=== PATIENT | male | born 1965 | race Caucasian/White ===

== ENCOUNTER 2019-10-23 00:18 | Inpatient (IN) | payer MEDICARE ==
[~2019-10-23] VITALS: Ht 177.8 cm; Wt 90.0 kg
[2019-10-23] MEDS ORDERED: LORazepam 2 MG/ML, 1ML IVPush ONE ×2 (00:30→02:00)
[2019-10-23] MEDS ORDERED: SODIUM CHLORIDE 0.9% 1,000ML IVBOLUS ONE (00:30)
[2019-10-23 00:57] LABS: ALANINE AMINOTRANSFERASE 65 U/L (12-78); ALBUMIN 3.3 g/dL (3.4-5.0); ANION GAP 8 mmol/L (5-15); CALCIUM 7.2 mg/dL (8.5-10.1); CHLORIDE 101 mmol/L (98-107); CREATININE 1.02 mg/dL (0.7-1.3)
[2019-10-23 00:59] LABS: ALKALINE PHOSPHATASE 85 U/L (45-117); BILIRUBIN,TOTAL 2.9 mg/dL (0.2-1.0)
[2019-10-23] MEDS ORDERED: LORazepam 2 MG/ML, 1ML ONE ×2 (01:03→01:41)
--- NOTE | 2019-10-23 01:13 | NUR ---
Patient BIB ambulance from [facility] for ETOH withdrawal. He presented to their facility with general malaise, multiple falls, decreased appetite, and not feeling well. Patient states he stopped drinking a long time ago but then admitted to his last drink being a few days ago. Patient had multiple abnormal labs. Patient is tremulous and unable to follow directions well. He is incontinent of urine. Respirations even and unlabored.
--- NOTE | 2019-10-23 01:14 | NUR ---
float rn: pt situated in bed with rn duke and this rn medicated. pt side rails up and bed locked in low position. 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
[2019-10-23] MEDS ORDERED: HYDR-3237 PO (01:19)
[2019-10-23] MEDS ORDERED: PANT40TA5 PO (01:19)
[2019-10-23] MEDS ORDERED: CHLO25CA9 PO (01:19)
[2019-10-23] MEDS ORDERED: THIA100T67 PO (01:19)
[2019-10-23] MEDS ORDERED: AMLO-150 PO (01:19)
[2019-10-23 01:22] LABS: MEAN CORPUSCULAR HEMOGLOBIN 35.3 pg (27.5-34.5); MEAN CORPUSCULAR HGB CONC 33.8 g/dL (33.2-36.2); MEAN CORPUSCULAR VOLUME 104.5 fL (81-97); RED BLOOD COUNT 3.73 x10^6/uL (4.38-5.82); RED CELL DISTRIBUTION WIDTH 14.2 % (9.4-14.8)
[2019-10-23 01:25] LABS: BASOPHILS # (AUTO) 0.02 x10^3/uL (0-0.1); BASOPHILS % (AUTO) 0 % (0-1); EOSINOPHILS # (AUTO) 0.06 x10^3/uL (0-0.4); EOSINOPHILS % (AUTO) 1 % (1-7); LYMPHOCYTES # (AUTO) 1.01 x10^3/uL (1-3.4); LYMPHOCYTES % (AUTO) 18 % (22-44); MD SCAN; MEAN PLATELET VOLUME 8.3 fL (7.4-10.4); MONOCYTES # (AUTO) 0.32 x10^3/uL (0.2-0.8); MONOCYTES % (AUTO) 6 % (2-9); NEUTROPHILS # (AUTO) 4.19 x10^3/uL (1.8-6.8); NEUTROPHILS % (AUTO) 75 % (42-75)
[2019-10-23 01:27] LABS: PLATELET COUNT 28 x10^3/uL (130-400)
[2019-10-23] MEDS ORDERED: FOLIC ACID 1 MG TABLET PO ONE (02:00)
[2019-10-23] MEDS ORDERED: THIAMINE 200 MG in DEXTROSE 5% 50 ML IVPB ONE (02:00)
[2019-10-23] MEDS ORDERED: ONDANSETRON 2MG/ML, 2ML IVPush PRN (02:00)
[2019-10-23] MEDS ORDERED: LORazepam 2 MG/ML, 1ML IV PRN ×2 (02:00)
[2019-10-23] MEDS ORDERED: D5%-0.9% NACL+KCL 20MEQ 1,000 ML IV SCH (02:00)
[2019-10-23] MEDS ORDERED: POTASSIUM CHLORIDE 20 MEQ in SODIUM CHLORIDE 0.9% 250 ML IV ONE (02:00)
--- NOTE | 2019-10-23 02:07 | NUR ---
Demi barnes in [facility] - 10/23/19 at 0229 by [email or web address] Report given to SHIREEN Giraldo. Patient to be transferred to room [facility].
--- NOTE | 2019-10-23 02:29 | NUR ---
Report given to SHIREEN Lafleur. Patient to be transferred to room 517.
[2019-10-23 03:10] VITALS: BP 138/83
[2019-10-23] MEDS: LORazepam 2 MG/ML, 1ML IV PRN ×6 (03:24→14:25)
[2019-10-23 03:50] LABS: MICROSCOPIC NOT IND
[2019-10-23 08:00] VITALS: BP 162/94
[2019-10-23] MEDS ORDERED: MULTIVITAMINS/MINERALS TABLET PO SCH (09:00)
[2019-10-23] MEDS ORDERED: MORPHINE SULFATE 4 MG/ML, 1ML IVPush PRN (09:00)
[2019-10-23] MEDS: CHLORDIAZEPOXIDE 25 MG CAPSULE PO SCH ×2 (09:39→15:09)
[2019-10-23] MEDS: POTASSIUM CHLORIDE 20 MEQ, MAGNESIUM SULFATE 1 GM, FOLIC ACID 1 MG, THIAMINE 200 MG, MV... IV SCH (09:40)
[2019-10-23 10:48] VITALS: BP 150/99
[2019-10-23] MEDS ORDERED: MAGNESIUM SULFATE PMX 2GM/50ML 50 ML IV ONE (13:00)
[2019-10-23 14:03] VITALS: BP 170/95
--- NOTE | 2019-10-23 14:19 | NUR ---
RECEIVED CALL FROM [facility] AT [place]. PATIENT HAS GRAM POSITIVE COCCI IN [facility] GROWING IN THE AEROBIC BOTTLE AT THEIR FACILITY. NOTIFIED ALEX ADAMES APRN, BY PHONE.
[2019-10-23] MEDS ORDERED: VANCOMYCIN PER PHARMACY MC PRN (15:30)
[2019-10-23] MEDS ORDERED: VANCOMYCIN 2,300 MG in SODIUM CHLORIDE 0.9% 500 ML IV ONE (16:00)
[2019-10-23] MEDS ORDERED: PHARMACOKINETIC MONITORING MC PRN (16:00)
[2019-10-23] MEDS ORDERED: PHARMACY INSTRUCTION MC PRN ×4 (16:00)
[2019-10-23] MEDS ORDERED: PHENOBARBITAL SODIUM 730 MG in SODIUM CHLORIDE 0.9% 50 ML IVPB ONE (17:00)
[2019-10-23] MEDS ORDERED: SODIUM CHLORIDE 0.9% IV ONE (18:30)
[2019-10-23] MEDS ORDERED: PHENOBARBITAL SODIUM IV ONE (18:30)
[2019-10-23] MEDS: PHENOBARBITAL SODIUM 65 MG/ML, 1ML IM SCH (23:15)
[2019-10-24] MEDS: VANCOMYCIN 1,700 MG in SODIUM CHLORIDE 0.9% 250 ML IV SCH ×2 (04:06→17:53)
[2019-10-24 04:37] LABS: MEAN CORPUSCULAR HEMOGLOBIN 35.2 pg (27.5-34.5); MEAN CORPUSCULAR HGB CONC 33.2 g/dL (33.2-36.2); RED BLOOD COUNT 4.05 x10^6/uL (4.38-5.82); RED CELL DISTRIBUTION WIDTH 13.6 % (9.4-14.8)
[2019-10-24 04:40] LABS: ALBUMIN 3.2 g/dL (3.4-5.0); ANION GAP 11 mmol/L (5-15); CALCIUM 7.1 mg/dL (8.5-10.1); CHLORIDE 102 mmol/L (98-107)
[2019-10-24 04:41] LABS: PLATELET COUNT 23 x10^3/uL (130-400)
[2019-10-24 04:43] LABS: ALANINE AMINOTRANSFERASE 52 U/L (12-78); ALKALINE PHOSPHATASE 84 U/L (45-117); BILIRUBIN,TOTAL 3.9 mg/dL (0.2-1.0); CREATININE 0.83 mg/dL (0.7-1.3); TOTAL PROTEIN 6.9 g/dL (6.4-8.2)
[2019-10-24 05:04] LABS: BASOPHILS # (AUTO) 0.09 x10^3/uL (0-0.1); BASOPHILS % (AUTO) 2 % (0-1); EOSINOPHILS # (AUTO) 0.06 x10^3/uL (0-0.4); EOSINOPHILS % (AUTO) 1 % (1-7); LYMPHOCYTES # (AUTO) 1.35 x10^3/uL (1-3.4); LYMPHOCYTES % (AUTO) 22 % (22-44); MD SCAN; MONOCYTES # (AUTO) 0.34 x10^3/uL (0.2-0.8); MONOCYTES % (AUTO) 6 % (2-9); NEUTROPHILS # (AUTO) 4.23 x10^3/uL (1.8-6.8); NEUTROPHILS % (AUTO) 70 % (42-75)
[2019-10-24] MEDS ORDERED: MAGNESIUM SULFATE PMX 4GM/100M 100 ML IV ONE (06:30)
[2019-10-24] MEDS ORDERED: SODIUM PHOSPHATE 20 MMOL in SODIUM CHLORIDE 0.9% 500 ML IV ONE (06:30)
[2019-10-24 08:00] VITALS: BP 128/92
[2019-10-24] MEDS: POTASSIUM CHLORIDE 20 MEQ TAB.ER.PRT PO SCH ×2 (08:55→17:53)
[2019-10-24] MEDS: POTASSIUM CHLORIDE 20 MEQ, MAGNESIUM SULFATE 1 GM, FOLIC ACID 1 MG, THIAMINE 200 MG, MV... IV SCH (10:29)
[2019-10-24] MEDS: PHENOBARBITAL SODIUM 65 MG/ML, 1ML IM SCH ×2 (11:52→23:45)
[2019-10-24] MEDS: OXYcodone IR 5MG TABLET PO PRN ×2 (12:01→22:02)
[2019-10-24] MEDS ORDERED: DIPHENHYDRAMINE 50 MG/ML, 1ML IVPush SCH (16:30)
[2019-10-24 21:00] VITALS: BP 109/83
[2019-10-25 02:13] VITALS: BP 107/82
[2019-10-25 04:40] LABS: ANION GAP 11 mmol/L (5-15); CALCIUM 6.6 mg/dL (8.5-10.1); CHLORIDE 105 mmol/L (98-107); CREATININE 1.16 mg/dL (0.7-1.3)
[2019-10-25] MEDS: VANCOMYCIN 1,700 MG in SODIUM CHLORIDE 0.9% 250 ML IV SCH ×2 (05:39→16:49)
[2019-10-25] MEDS: POTASSIUM CHLORIDE 20 MEQ TAB.ER.PRT PO SCH ×2 (08:05→16:49)
[2019-10-25 08:10] VITALS: BP 117/88
[2019-10-25] MEDS: OXYcodone IR 5MG TABLET PO PRN ×2 (08:24→16:49)
[2019-10-25] MEDS ORDERED: CALCIUM CARBONATE 500 MG TAB.CHEW PO PRN (09:00)
[2019-10-25 10:07] VITALS: BP 92/88
[2019-10-25] MEDS: POTASSIUM CHLORIDE 20 MEQ, MAGNESIUM SULFATE 1 GM, FOLIC ACID 1 MG, THIAMINE 200 MG, MV... IV SCH (10:15)
[2019-10-25] MEDS ORDERED: PHENOBARBITAL 20 MG/5 ML ORAL SOL PO ONE (11:00)
[2019-10-25 13:00] VITALS: BP 109/80
[2019-10-25] MEDS ORDERED: ERGOCALCIFEROL 50,000 UNIT CAPSULE PO SCH (15:30)
[2019-10-25 19:15] VITALS: BP 108/73
[2019-10-25] MEDS ORDERED: ONDANSETRON ODT 4 MG PO PRN (21:30)
[2019-10-25] MEDS ORDERED: ACETAMINOPHEN 325 MG TABLET PO PRN (21:30)
[2019-10-25] MEDS: PHENOBARBITAL 20 MG/5 ML ORAL SOL PO SCH (23:12)
[2019-10-26 01:10] VITALS: BP 103/71
[2019-10-26] MEDS: OXYcodone IR 5MG TABLET PO PRN ×3 (02:10→21:40)
[2019-10-26 05:01] LABS: ANION GAP 11 mmol/L (5-15); CALCIUM 7.3 mg/dL (8.5-10.1); CHLORIDE 105 mmol/L (98-107); CREATININE 1.08 mg/dL (0.7-1.3)
[2019-10-26 06:31] VITALS: BP 111/75
[2019-10-26] MEDS ORDERED: VANCOMYCIN 1,700 MG in SODIUM CHLORIDE 0.9% 250 ML IV SCH (11:00)
[2019-10-26] MEDS: PHENOBARBITAL 20 MG/5 ML ORAL SOL PO SCH ×2 (11:27→22:47)
[2019-10-26 12:14] VITALS: BP 115/75
[2019-10-26 19:04] VITALS: BP 108/84
[2019-10-27 00:23] VITALS: BP 97/65
[2019-10-27 03:57] VITALS: BP 117/81
[2019-10-27] MEDS: OXYcodone IR 5MG TABLET PO PRN ×2 (04:02→16:25)
[2019-10-27 04:35] LABS: ALBUMIN 2.5 g/dL (3.4-5.0); ANION GAP 6 mmol/L (5-15); CALCIUM 8.2 mg/dL (8.5-10.1); CHLORIDE 100 mmol/L (98-107)
[2019-10-27 04:40] LABS: ALANINE AMINOTRANSFERASE 49 U/L (12-78); ALKALINE PHOSPHATASE 96 U/L (45-117); BILIRUBIN,TOTAL 2.4 mg/dL (0.2-1.0); CREATININE 1.22 mg/dL (0.7-1.3); TOTAL PROTEIN 5.9 g/dL (6.4-8.2)
[2019-10-27 05:57] LABS: MEAN CORPUSCULAR HEMOGLOBIN 35.1 pg (27.5-34.5); MEAN CORPUSCULAR HGB CONC 32.8 g/dL (33.2-36.2); MEAN PLATELET VOLUME 8.9 fL (7.4-10.4); RED BLOOD COUNT 3.36 x10^6/uL (4.38-5.82); RED CELL DISTRIBUTION WIDTH 14.6 % (9.4-14.8)
[2019-10-27 05:59] LABS: BASOPHILS # (AUTO) 0.02 x10^3/uL (0-0.1); BASOPHILS % (AUTO) 1 % (0-1); EOSINOPHILS # (AUTO) 0.09 x10^3/uL (0-0.4); EOSINOPHILS % (AUTO) 2 % (1-7); LYMPHOCYTES # (AUTO) 1.23 x10^3/uL (1-3.4); LYMPHOCYTES % (AUTO) 33 % (22-44); MD SCAN; MONOCYTES # (AUTO) 0.49 x10^3/uL (0.2-0.8); MONOCYTES % (AUTO) 13 % (2-9); NEUTROPHILS # (AUTO) 1.87 x10^3/uL (1.8-6.8); NEUTROPHILS % (AUTO) 51 % (42-75)
[2019-10-27 06:00] LABS: PLATELET COUNT 44 x10^3/uL (130-400)
[2019-10-27 09:17] VITALS: BP 134/89
[2019-10-27] MEDS: PHENOBARBITAL 20 MG/5 ML ORAL SOL PO SCH ×2 (10:10→22:02)
[2019-10-27 12:43] VITALS: BP 103/66
[2019-10-27 18:53] VITALS: BP 131/86
[2019-10-28 00:58] VITALS: BP 148/77
[2019-10-28 01:41] VITALS: BP 139/86
[2019-10-28] MEDS: OXYcodone IR 5MG TABLET PO PRN ×3 (02:51→21:15)
[2019-10-28 05:58] LABS: MEAN CORPUSCULAR HEMOGLOBIN 35.9 pg (27.5-34.5); MEAN CORPUSCULAR HGB CONC 33.6 g/dL (33.2-36.2); MEAN CORPUSCULAR VOLUME 106.9 fL (81-97); MEAN PLATELET VOLUME 8.9 fL (7.4-10.4); PLATELET COUNT 55 x10^3/uL (130-400); RED BLOOD COUNT 3.58 x10^6/uL (4.38-5.82); RED CELL DISTRIBUTION WIDTH 14.9 % (9.4-14.8)
[2019-10-28 06:00] LABS: ALBUMIN 2.9 g/dL (3.4-5.0); CALCIUM 9.5 mg/dL (8.5-10.1); CHLORIDE 99 mmol/L (98-107)
[2019-10-28 06:04] LABS: ALANINE AMINOTRANSFERASE 50 U/L (12-78); ALKALINE PHOSPHATASE 101 U/L (45-117); BILIRUBIN,TOTAL 2.5 mg/dL (0.2-1.0); CREATININE 1.26 mg/dL (0.7-1.3); TOTAL PROTEIN 6.6 g/dL (6.4-8.2)
[2019-10-28 06:13] LABS: BASOPHILS # (AUTO) 0.02 x10^3/uL (0-0.1); BASOPHILS % (AUTO) 1 % (0-1); EOSINOPHILS # (AUTO) 0.05 x10^3/uL (0-0.4); EOSINOPHILS % (AUTO) 1 % (1-7); LYMPHOCYTES # (AUTO) 0.99 x10^3/uL (1-3.4); LYMPHOCYTES % (AUTO) 30 % (22-44); MD SCAN; MONOCYTES # (AUTO) 0.54 x10^3/uL (0.2-0.8); MONOCYTES % (AUTO) 16 % (2-9); NEUTROPHILS % (AUTO) 52 % (42-75)
[2019-10-28 06:36] VITALS: BP 150/92
[2019-10-28 07:31] LABS: ANION GAP 6 mmol/L (5-15)
[2019-10-28] MEDS: PHENOBARBITAL 20 MG/5 ML ORAL SOL PO SCH ×2 (10:19→22:17)
[2019-10-28 14:00] VITALS: BP 122/74
[2019-10-28 20:21] VITALS: BP 121/74
[2019-10-29 00:18] VITALS: BP 146/90
[2019-10-29 06:04] LABS: ANION GAP 6 mmol/L (5-15); CALCIUM 9.7 mg/dL (8.5-10.1); CHLORIDE 98 mmol/L (98-107)
[2019-10-29 06:05] LABS: CREATININE 1.05 mg/dL (0.7-1.3)
[2019-10-29 06:06] LABS: MEAN CORPUSCULAR HEMOGLOBIN 36.1 pg (27.5-34.5); MEAN CORPUSCULAR HGB CONC 33.8 g/dL (33.2-36.2); MEAN CORPUSCULAR VOLUME 106.8 fL (81-97); MEAN PLATELET VOLUME 8.6 fL (7.4-10.4); PLATELET COUNT 73 x10^3/uL (130-400); RED CELL DISTRIBUTION WIDTH 15.6 % (9.4-14.8)
[2019-10-29 06:34] LABS: BASOPHILS # (AUTO) 0.02 x10^3/uL (0-0.1); BASOPHILS % (AUTO) 1 % (0-1); EOSINOPHILS # (AUTO) 0.04 x10^3/uL (0-0.4); EOSINOPHILS % (AUTO) 1 % (1-7); LYMPHOCYTES # (AUTO) 0.74 x10^3/uL (1-3.4); LYMPHOCYTES % (AUTO) 25 % (22-44); MD SCAN; MONOCYTES # (AUTO) 0.57 x10^3/uL (0.2-0.8); MONOCYTES % (AUTO) 20 % (2-9); NEUTROPHILS # (AUTO) 1.53 x10^3/uL (1.8-6.8); NEUTROPHILS % (AUTO) 53 % (42-75)
[2019-10-29 07:12] VITALS: BP 119/75
[2019-10-29] MEDS: PHENOBARBITAL 20 MG/5 ML ORAL SOL PO SCH (11:02)
[2019-10-29 12:15] VITALS: BP 122/74
[2019-10-29] MEDS: OXYcodone IR 5MG TABLET PO PRN ×2 (14:32→15:00)
[2019-10-29] MEDS ORDERED: ERGO500017 PO (15:51)
[2019-10-29 18:29] VITALS: BP 117/69
== END 2019-10-29 18:49 | DRG 896 ==
LOC: ED 00:25 → EDIP 01:44 → 5SO 02:42 → 4WST 07:48 → CCU 15:48 → 4WST 10-25 09:57
PROVIDERS: ADMIT Internal Medicine; ATTEND Family Medicine
DX: F10.231 Alcohol dependence with withdrawal delirium (principal); G93.41 Metabolic encephalopathy; E43 Unspecified severe protein-calorie malnutrition; E87.2 Acidosis; D69.3 Immune thrombocytopenic purpura; F05 Delirium due to known physiological condition; E83.42 Hypomagnesemia; E83.51 Hypocalcemia; E87.6 Hypokalemia; E03.9 Hypothyroidism, unspecified; Z96.651 Presence of right artificial knee joint; Y90.6 Blood alcohol level of 120-199 mg/100 ml; M25.561 Pain in right knee; M25.511 Pain in right shoulder; K76.0 Fatty (change of) liver, not elsewhere classified; I10 Essential (primary) hypertension; F41.1 Generalized anxiety disorder; D72.819 Decreased white blood cell count, unspecified; M19.90 Unspecified osteoarthritis, unspecified site; W11.XXXA Fall on and from ladder, initial encounter; Y93.89 Activity, other specified; Y92.098 Other place in other non-institutional residence as the place of occurrence of the external cause; Y99.8 Other external cause status; Z86.711 Personal history of pulmonary embolism; Z87.891 Personal history of nicotine dependence; Z91.81 History of falling; Z68.28 Body mass index [BMI] 28.0-28.9, adult
CPT/HCPCS: 36415; 70450; 80048; 80053; 80202; 81003; 82306; 82607; 83605; 83735; 83970; 84100; 84145; 84439; 84443; 84481; 85025; 87040; 87081; 93005; 96374; 96375; 99291; G0378; J2560; J3370; J3411; J3475; J3480; J7042; Q0162; J2060; J7030; J7040; J7050